=== PATIENT | female | born 1975 ===

== ENCOUNTER 2020-09-11 06:10 | Day surgery (SDC) | payer OTHER ==
[~2020-09-11 06:10] MED LIST: LEVOTHYROXINE25 MCG PO
== END 2020-09-11 16:40 | disposition home or self-care (01) ==
LOC: CIR.AMB 06:10
PROVIDERS: ATTEND Urology
DX: N30.10 Interstitial cystitis (chronic) without hematuria (principal); Z20.822 Contact with and (suspected) exposure to COVID-19